=== PATIENT | female | born 1990 | race African-American/Black ===

== ENCOUNTER 2017-09-12 00:03 | Emergency (ER) | payer OTHER | END 2017-09-12 02:17 | disposition left against medical advice (07) | LOC: ER 00:03 | DX: G89.29 Other chronic pain (principal); M54.5 Low back pain; Z53.21 Procedure and treatment not carried out due to patient leaving prior to being seen by health care provider ==

== ENCOUNTER 2018-01-04 06:34 | Emergency (ER) | payer OTHER ==
[~2018-01-04] VITALS: Ht 160 cm; Wt 81.6 kg
--- NOTE | 2018-01-04 06:42 | PHYS DOC ---
Past Medical History Past Medical History: Asthma Past Surgical History: Smoking: Cigarettes (The patient is a nonsmoker.) Alcohol Use: Occasionally Drug Use: None Adult General Chief Complaint Chief Complaint: ASTHMA HPI HPI Patient is a 27-year-old -Prydeinig female with a past history of asthma who presents to the emergency department for evaluation of increasing trouble breathing and tightness in her chest over the past several days. She has had a cough productive of greenish sputum. She has not had any fevers or chills. She states that she had been taking albuterol but does not have a PCP and is out of her medication. She denies any abdominal pain, nausea, vomiting. She denies . There are no alleviating, or exacerbating factors to her symptoms although exertion seems to worsen her shortness of breath. Review of Systems Review of Systems Constitutional: Denies fever or chills [] Eyes: Denies change in visual acuity, redness, or eye pain [] HENT: Denies nasal congestion or sore throat [] Respiratory: Reports productive cough, shortness of breath, denies pleuritic pain[] Cardiovascular: The patient denies any chest pain, palpitations, or orthopnea [] GI: Denies abdominal pain, nausea, vomiting, bloody stools or diarrhea [] : Denies dysuria or hematuria. Denies [] Musculoskeletal: Denies back pain or joint pain [] Integument: Denies rash or skin lesions [] Neurologic: Denies headache, focal weakness or sensory changes [] Current Medications Current Medications Current Medications Medications (Trade) Dose Ordered Sig/Eleazar Start Time Stop Time Status Last Admin Dose Admin Albuterol/ Ipratropium (Duoneb) 3 ml 1X ONCE 01/04/18 06:45 01/04/18 06:46 DC 01/04/18 07:08 3 ML Prednisone (Prednisone) 40 mg 1X ONCE 01/04/18 06:45 01/04/18 06:46 DC 01/04/18 06:56 40 MG Allergies Allergies Allergies Coded Allergies Type Severity Reaction Last Updated Verified shellfish derived Allergy Unknown 09/12/17 Yes Physical Exam Physical Exam PHYSICAL EXAM: CONSTITUTIONAL: Well developed, well nourished HEAD: normocephalic, atraumatic EENT: PERRL, EOMI. Conjunctivae normal color, sclerae non-icteric; moist mucous membranes. NECK: Supple, non-tender; no meningismus. LUNGS: There are mildly diminished breath sounds diffusely, with scattered inspiratory and expiratory wheezes in all lung quinones. There are no rales or rhonchi. Breathing is mildly labored. HEART: Regular rate and rhythm, no murmur CHEST: No deformity; non-tender ABDOMEN: The abdomen is soft, and non-tender, no masses or bruits. EXTREM: Normal ROM; no deformity, no calf tenderness. Normal pulses palpable in all extremities. There is no pedal edema. SKIN: No rash; no diaphoresis NEURO: Alert; normal speech and cognition; CN's grossly intact; strength grossly intact without focal deficit. BACK: No CVA TTP. Current Patient Data Vital Signs Vital Signs Date Time Temp Pulse Resp B/P (MAP) Pulse Ox O2 Delivery O2 Flow Rate FiO2 01/04/18 07:34 105 18 128/77 (94) 95 Room Air 01/04/18 06:35 97.9 97.9 EKG EKG [] Radiology/Procedures Radiology/Procedures [PROCEDURE: CHEST PA & LATERAL CHEST PA LATERAL History: SHORTNESS OF BREATH X 4 DAYS, HX OF ASTHMA Comparison: Two-view chest, February 17, 2008. Findings: The cardiomediastinal silhouette is normal. Pulmonary vasculature is normal. The lungs are clear. No pleural effusion or pneumothorax is seen. There is no acute bone abnormality. IMPRESSION: No acute cardiopulmonary process. ] Course & Med Decision Making Course & Med Decision Making Pertinent maging studies reviewed. (See chart for details) [7:40 AM: The patient's condition has significantly improved. Her wheezing has almost completely resolved, and she is feeling much better. I discussed test results with the patient, home medication plan, the need for establishment of a PCP (she'll be given resources to facilitate such), and return precautions.] Dragon Disclaimer Dragon Disclaimer This electronic medical record was generated, in whole or in part, using a voice recognition dictation system. Departure Departure Impression: Primary Impression: Acute asthma exacerbation Disposition: 01 HOME, SELF-CARE Condition: IMPROVED Patient Instructions: Asthma, Acute Bronchospasm, Asthma, Adult Additional Instructions: Use the provided resources to help establish follow-up Care with a primary care provider in the next 1-2 weeks. Scripts Albuterol Sulfate (PROAIR HFA INHALER) 8.5 Gm Hfa.aer.ad 1 PUFF INH PRN Q6HRS PRN for SHORTNESS OF BREATH, #1 INHALER 0 Refills Prov: VERITO ZAZUETA MD 01/04/18 Prednisone (PREDNISONE) 20 Mg Tablet 40 MG PO DAILY for 5 Days, #10 TAB Prov: VERITO ZAZUETA MD 01/04/18 VERITO ZAZUETA MD Jan 04, 2018 06:42
[2018-01-04] MEDS ORDERED: predniSONE 20 MG TABLET PO ONE (06:45)
[2018-01-04] MEDS ORDERED: IPRATRPIUM/ALBUTEROL 0.5/2.5MG 3 ML NEBU. NEB ONE ×2 (06:45)
--- NOTE | 2018-01-04 07:06 | RAD ---
CHEST PA LATERAL History: SHORTNESS OF BREATH X 4 DAYS, HX OF ASTHMA Comparison: Two-view chest, February 17, 2008. Findings: The cardiomediastinal silhouette is normal. Pulmonary vasculature is normal. The lungs are clear. No pleural effusion or pneumothorax is seen. There is no acute bone abnormality. IMPRESSION: No acute cardiopulmonary process. Electronically signed by: Rodney Graham MD (01/04/2018 7:02 AM) [facility]
[2018-01-04 07:34] VITALS: BP 128/77
[2018-01-04] MEDS ORDERED: PRED20TA PO (07:46)
[2018-01-04] MEDS ORDERED: PROAIR HFA8.5 GM INH (07:46)
== END 2018-01-04 08:21 | disposition home or self-care (01) ==
LOC: ER 06:34
DX: J45.901 Unspecified asthma with (acute) exacerbation (principal); Z98.890 Other specified postprocedural states; Z91.013 Allergy to seafood
CPT/HCPCS: 71046; 94640; 99284; J7512; J7620

== ENCOUNTER 2018-01-27 13:24 | Emergency (ER) | payer OTHER ==
[~2018-01-27] VITALS: Ht 160 cm; Wt 81.6 kg
[~2018-01-27 13:24] MED LIST: PRED20TA PO; PROAIR HFA8.5 GM INH
[2018-01-27 13:54] VITALS: BP 134/91
--- NOTE | 2018-01-27 15:08 | RAD ---
History: Left plantar foot pain after wearing heels one week ago. Comparison: None. Findings: AP, lateral, and oblique views of the left foot. Mild hallux valgus is seen. No acute fracture or dislocation is identified. No focal soft tissue swelling is identified. Impression: 1. No acute osseous abnormality identified. 2. Mild hallux valgus. Electronically signed by: Usman Vann MD (01/27/2018 3:05 PM) [facility]
[2018-01-27] MEDS ORDERED: MELO7.5T5 PO (15:13)
--- NOTE | 2018-01-27 15:14 | PHYS DOC ---
Past Medical History Past Medical History: Asthma, Other Additional Past Medical Histor: Pre-Diabetes Past Surgical History: Alcohol Use: Occasionally Drug Use: Marijuana Adult General Chief Complaint Chief Complaint: ANKLE PROBLEM [facility] Patient is a 27 year old female who presents with left heel pain that started on 01/19/18 after wearing high heels. She states the pain increases when she stands up or puts weight on her foot. She denies a fall or any known injury. She has taken some dlsd-zbb-[id number] pain medication with mild relief. Review of Systems Review of Systems Constitutional: Denies fever or chills [] Respiratory: Denies cough or shortness of breath [] Cardiovascular: No additional information not addressed in HPI [] GI: Denies abdominal pain, nausea, vomiting, bloody stools or diarrhea [] : Denies dysuria or hematuria [] Musculoskeletal: See history of present illness Integument: Denies rash or skin lesions [] Neurologic: Denies headache, focal weakness or sensory changes [] Endocrine: Denies polyuria or polydipsia [] All other systems were reviewed and found to be within normal limits, except as documented in this note. Allergies Allergies Allergies Coded Allergies Type Severity Reaction Last Updated Verified shellfish derived Allergy Unknown 09/12/17 Yes Physical Exam Physical Exam Constitutional: Well developed, well nourished, no acute distress, non-toxic appearance. [] HENT: Normocephalic, atraumatic, bilateral external ears normal, oropharynx moist, no oral exudates, nose normal. [] Eyes: PERRLA, EOMI, conjunctiva normal, no discharge. [] Neck: Normal range of motion, no tenderness, supple, no stridor. [] Cardiovascular:Heart rate regular rhythm, no murmur [] Lungs & Thorax: Bilateral breath sounds clear to auscultation [] Abdomen: Bowel sounds normal, soft, no tenderness, no masses, no pulsatile masses. [] Skin: Warm, dry, no erythema, no rash. [] Back: No tenderness, no CVA tenderness. [] Extremities: tenderness to left heel with no evidence of Achilles rupture, no cyanosis, no clubbing, ROM intact, no edema or ecchymosis noted. [] Neurologic: Alert and oriented X 3, normal motor function, normal sensory function, no focal deficits noted. [] Psychologic: Affect normal, judgement normal, mood normal. [] Current Patient Data Vital Signs Vital Signs Date Time Temp Pulse Resp B/P (MAP) Pulse Ox O2 Delivery O2 Flow Rate FiO2 01/27/18 13:54 98.8 105 18 134/91 (105) 100 Room Air 98.8 EKG EKG [] Radiology/Procedures Radiology/Procedures []PATIENT: RENNY SUNG LACCOUNT: [id number]#: [id number] : 1990 LOCATION: ER AGE: 27 SEX: F EXAM STATUS: REG ER ORD. PHYSICIAN: ASH LY APRN REASON: pain x 1 week after wearing heels,D PROCEDURE: FOOT LEFT 3V History: Left plantar foot pain after wearing heels one week ago. Comparison: None. Findings: AP, lateral, and oblique views of the left foot. Mild hallux valgus is seen. No acute fracture or dislocation is identified. No focal soft tissue swelling is identified. Impression: 1. No acute osseous abnormality identified. 2. Mild hallux valgus. Electronically signed by: Usman Cervantes MD (01/27/2018 3:05 PM) [facility] DICTATED and SIGNED BY: USMAN CERVANTES MD DATE: 01/27/18 1503 Course & Med Decision Making Course & Med Decision Making Pertinent Labs and Imaging studies reviewed. (See chart for details) []The patient was placed in a postop shoe. She is to follow-up with podiatry for further evaluation of her condition. She is been placed on an anti- inflammatory. She is in agreement with this plan. She was given a shot of Toradol in the emergency department for pain. Dragon Disclaimer Dragon Disclaimer This electronic medical record was generated, in whole or in part, using a voice recognition dictation system. Departure Departure Impression: Primary Impression: Plantar fasciitis of left foot Disposition: 01 HOME, SELF-CARE Condition: STABLE Referrals: NO PCP (PCP) ANGE WELCH DPEmy Patient Instructions: Plantar Fasciitis Additional Instructions: Take the medication as directed. Follow-up with your primary care provider or podiatry if not improving in one week. Do the exercises and interventions that we discussed with tennis balls and frozen water bottles. Use mild stretching.` Scripts Meloxicam (MOBIC) 7.5 Mg Tablet 1 TAB PO DAILY for inflammation, #30 TAB 1 Refill Prov: ASH LY APRN 01/27/18 ASH LY APRN Jan 27, 2018 15:14
== END 2018-01-27 15:24 | disposition home or self-care (01) ==
LOC: ER 13:24
DX: M72.2 Plantar fascial fibromatosis (principal); J45.909 Unspecified asthma, uncomplicated; Z91.013 Allergy to seafood
CPT/HCPCS: 73630; 99283

== ENCOUNTER 2019-09-28 10:49 | Emergency (ER) | payer BC ==
[~2019-09-28] VITALS: Ht 154.9 cm; Wt 82.0 kg
[~2019-09-28 10:49] MED LIST changes: +ALBU2.5V8 INH; +MELO7.5T5 PO; -PROAIR HFA8.5 GM INH
[2019-09-28 13:00] VITALS: BP 151/92
--- NOTE | 2019-09-28 13:58 | PHYS DOC ---
Past Medical History Past Medical History: Asthma, Diabetes-Type II Additional Past Medical Histor: Pre-Diabetes Past Surgical History: Smoking Status: Never Smoker Alcohol Use: None Drug Use: Marijuana General Adult EDM: Chief Complaint: BACK PAIN - NO INJURY HPI: HPI: Patient is a 29 year old female who presents with right lower back pain that radiates down his right leg. She denies any recent falls or injury. She denies loss of bowel or bladder and saddle anesthesia. She denies any increased urination, dysuria, hematuria, nausea, vomiting, or fever. She describes the pain as a sharp shooting pain and rates it 8 out of 10. She has not tried any treatment at home and there are no alleviating factors, worse with movement. Review of Systems: Review of Systems: Constitutional: Denies fever or chills. [] Respiratory: Denies cough or shortness of breath. [] GI: Denies abdominal pain, loss of bowel, nausea, vomiting, or diarrhea. [] : Denies dysuria, loss of bladder. [] Musculoskeletal: See HPI Integument: Denies rash. [] Neurologic: Denies headache, focal weakness or sensory changes. [] Psychiatric: Denies depression or anxiety. [] Heart Score: Risk Factors: Risk Factors: DM, Current or recent (<one month) smoker, HTN, HLP, family history of CAD, obesity. Risk Scores: Score 0 - 3: 2.5% MACE over next 6 weeks - Discharge Home Score 4 - 6: 20.3% MACE over next 6 weeks - Admit for Clinical Observation Score 7 - 10: 72.7% MACE over next 6 weeks - Early Invasive Strategies Current Medications: Current Medications Medications (Trade) Dose Ordered Sig/Eleazar Start Time Stop Time Status Last Admin Dose Admin Ketorolac Tromethamine (Toradol 30mg Vial) 30 mg 1X ONCE 09/28/19 14:00 09/28/19 14:01 Orphenadrine Citrate (Norflex) 60 mg 1X ONCE 09/28/19 14:00 09/28/19 14:01 Allergies: Allergies: Allergies Coded Allergies Type Severity Reaction Last Updated Verified shellfish derived Allergy Unknown 09/12/17 Yes Physical Exam: PE: Constitutional: Well developed, well nourished, no acute distress, non-toxic appearance. [] HENT: Normocephalic, atraumatic, bilateral external ears normal, nose normal. [] Eyes: PERRLA, EOMI, conjunctiva normal, no discharge. [] Neck: Normal range of motion, no stridor. [] Cardiovascular:Heart rate regular rhythm Lungs & Thorax: Respirations even and unlabored, no retractions, no respiratory distress Back: no CVA tenderness; no bony spinal tenderness with palpation, right lumbar paraspinal tenderness with palpation, increased pain with R leg ROM, pt refuses to sit for straight leg lift testing [] Skin: Warm, dry, no erythema, no rash. [] Extremities: No cyanosis, ROM intact, no edema; Neurologic: Alert and oriented X 3, no focal deficits noted. [] Psychologic: Affect normal, judgement normal, mood normal. [] Current Patient Data: Vital Signs: Vital Signs Date Time Temp Pulse Resp B/P (MAP) Pulse Ox O2 Delivery O2 Flow Rate FiO2 09/28/19 13:00 98.1 90 17 151/92 (111) 100 Room Air 98.1 EKG: EKG: [] Radiology/Procedures: Radiology/Procedures: [] Course & Med Decision Making: Course & Med Decision Making Pertinent Labs and Imaging studies reviewed. (See chart for details) Patient presents with complaints of right low back pain that shoots down the right leg. She denies any urinary symptoms or complaints, her urine hCG is negative. Patient was given 60 mg of IM Norflex and 30 mg of IM Toradol in the emergency department. Will prescribe naproxen and Flexeril. Patient encouraged to follow the low back pain instructions and exercises that are provided. Patient encouraged to follow-up with her primary care doctor if symptoms persist. Return to the ER if symptoms worsen. Patient verbalized an understanding of home care, medications, follow-up, and return to ED instructions and was in agreement with the plan of care. [] Dragon Disclaimer: Dragon Disclaimer: This electronic medical record was generated, in whole or in part, using a voice recognition dictation system. Departure Departure Impression: Primary Impression: Right-sided low back pain with sciatica Qualified Codes: M54.41 - Lumbago with sciatica, right side Disposition: 01 HOME, SELF-CARE Condition: STABLE Referrals: UNKNOWN PCP NAME (PCP) Patient Instructions: Sciatica with [facility] Additional Instructions: Fill the prescription(s) and use as directed. Apply heat or ice for to sore areas as needed for comfort. Activity as tolerated. Follow up with your primary care doctor this week if symptoms persist, return to the ER if symptoms worsen. Scripts Cyclobenzaprine Hcl (CYCLOBENZAPRINE HCL) 10 Mg Tablet 1 TAB PO TID PRN for PAIN for 10 Days, #30 TAB 0 Refills Prov: HELGA SANON APRN 09/28/19 Naproxen (NAPROXEN) 500 Mg Tablet 1 TAB PO BID PRN for PAIN for 10 Days, #20 TAB 0 Refills Prov: HELGA SANON APRN 09/28/19 Justicifation of Admission Dx: Justifications for Admission: Justification of Admission Dx: N/A HELGA SANON APRN Sep 28, 2019 13:58
[2019-09-28] MEDS ORDERED: KETOROLAC 30 MG/ML VIAL. IM ONE (14:00)
[2019-09-28] MEDS ORDERED: ORPHENADRINE CITRATE 60 MG/2 ML VIAL. IM ONE (14:00)
[2019-09-28] MEDS ORDERED: NAPR-514 PO (14:22)
[2019-09-28] MEDS ORDERED: CYCL10TA2 PO (14:22)
== END 2019-09-28 14:30 | disposition home or self-care (01) ==
LOC: ER 10:49
DX: M54.41 Lumbago with sciatica, right side (principal); E11.9 Type 2 diabetes mellitus without complications; J45.909 Unspecified asthma, uncomplicated; Z91.013 Allergy to seafood
CPT/HCPCS: 81025; 96372; 99284; J1885; J2360

== ENCOUNTER 2020-06-28 10:33 | Emergency (ER) | payer SELFPAY ==
[~2020-06-28] VITALS: Ht 154.9 cm; Wt 79.0 kg
[~2020-06-28 10:33] MED LIST changes: +CYCL10TA2 PO; +NAPR-514 PO
[2020-06-28] MEDS ORDERED: [UNRECOGNIZED DRUG - CODE] VG (11:05)
--- NOTE | 2020-06-28 11:06 | PHYS DOC ---
Past Medical History Past Medical History: Asthma, Diabetes-Type II Additional Past Medical Histor: Pre-Diabetes (RAYNA CROCKETT WARDROBE CUSTODIAN) Past Surgical History: (RAYNA CROCKETT WARDROBE CUSTODIAN) Smoking Status: Never Smoker Alcohol Use: None Drug Use: Marijuana (RAYNA CROCKETT WARDROBE CUSTODIAN) General Adult EDM: Chief Complaint: VAGINAL PROBLEM HPI: HPI: Patient is a 30 year old female who presents with began using dove antibacterial soap and now has vaginal dryness and itching. She denies std concerns or vaginal discharge. She states she has alot of vaginal itching. Denies abdominal pain, nausea, vomiting, back pain, fever, urinary symptoms, diarrhea, constipation. She states she would also like to be checked for a UTI. Patient has a history of Diabetes, asthma, and . (RAYNA CROCKETT WARDROBE CUSTODIAN) Review of Systems: Review of Systems: Constitutional: Denies fever or chills. [] Eyes: Denies change in visual acuity. [] HENT: Denies nasal congestion or sore throat. [] Respiratory: Denies cough or shortness of breath. [] Cardiovascular: Denies chest pain or edema. [] GI: Denies abdominal pain, nausea, vomiting, bloody stools or diarrhea. [] : Denies dysuria. +Vaginal Dryness, +vaginal itching[] Musculoskeletal: Denies back pain or joint pain. [] Integument: Denies rash. [] Neurologic: Denies headache, focal weakness or sensory changes. [] Endocrine: Denies polyuria or polydipsia. [] Lymphatic: Denies swollen glands. [] Psychiatric: Denies depression or anxiety. [] (RAYNA CROCKETT WARDROBE CUSTODIAN) Heart Score: C/O Chest Pain: No Risk Factors: Risk Factors: DM, Current or recent (<one month) smoker, HTN, HLP, family history of CAD, obesity. Risk Scores: Score 0 - 3: 2.5% MACE over next 6 weeks - Discharge Home Score 4 - 6: 20.3% MACE over next 6 weeks - Admit for Clinical Observation Score 7 - 10: 72.7% MACE over next 6 weeks - Early Invasive Strategies (RAYNA CROCKETT WARDROBE CUSTODIAN) Allergies: Allergies: Allergies Coded Allergies Type Severity Reaction Last Updated Verified shellfish derived Allergy Unknown 09/12/17 Yes (RAYNA CROCKETT APRN) Physical Exam: PE: Constitutional: Well developed, well nourished, no acute distress, non-toxic appearance. [] HENT: Normocephalic, atraumatic, bilateral external ears normal, oropharynx moist, no oral exudates, nose normal. [] Eyes: PERRLA, EOMI, conjunctiva normal, no discharge. [] Neck: Normal range of motion, no tenderness, supple, no stridor. [] Cardiovascular:Heart rate regular rhythm, no murmur [] Lungs & Thorax: Bilateral breath sounds clear to auscultation [] Abdomen: Bowel sounds normal, soft, no tenderness, no masses, no pulsatile masses. [] Skin: Warm, dry, no erythema, no rash. Dryness to vaginal external skin[] Back: No tenderness, no CVA tenderness. [] Extremities: No tenderness, no cyanosis, no clubbing, ROM intact, no edema. [] Neurologic: Alert and oriented X 3, normal motor function, normal sensory function, no focal deficits noted. [] Psychologic: Affect normal, judgement normal, mood normal. [] (RANYA CROCKETT APRN) EKG: EKG: [] (RAYNA CROCKETT APRN) Radiology/Procedures: Radiology/Procedures: [] (RAYNA CROCKETT APRN) Course & Med Decision Making: Course & Med Decision Making Pertinent Labs and Imaging studies reviewed. (See chart for details) See HPI. Alert and oriented x4. Ambulatory with a steady gait. Speaks in full clear sentences. Afebrile. Pelvic Exam: Environmental Field Office Manager present Abdomen: Nontender External Genitalia: Normal Skin but dry in appearance Speculum: Normal vaginal mucosa, normal cervical discharge Bimanual: No adnexal masses or tenderness, No CMT [] (RAYNA CROCKETT APRN) Dragon Disclaimer: Dragon Disclaimer: This electronic medical record was generated, in whole or in part, using a voice recognition dictation system. (RAYNA CROCKETT APRN) Departure Departure Impression: Primary Impression: Vaginal itching Disposition: 01 HOME / SELF CARE / HOMELESS Condition: STABLE Referrals: UNKNOWN PCP NAME (PCP) JUSTINA MEYER Jr, MD Patient Instructions: Medical Screening Exam Additional Instructions: Follow-up with your primary care provider or your OB top and trim worker. Use [id number] creams for vaginal dryness. Scripts Polycarbophil (REPLENS) 6.7 Gm Gel.pf.cara 6.7 GM VG TID, #1 EACH Prov: RAYNA CROCKETT APRN 06/28/20 Attending Signature Attending Signature I have participated in the care of this patient and I have reviewed and agree with all pertinent clinical information above including history, exam, and recommendations. (LINDSAY VELAZQUEZ DO) RAYNA CROCKETT APRN June 28, 2020 11:06 LINDSAY VELAZQUEZ DO June 30, 2020 17:41
[2020-06-28 11:29] LABS: COLOR,URINE RED
[2020-06-28 11:47] LABS: CLARITY,URINE BLOODY
[2020-06-28 11:48] LABS: RBC,URINE TNTC /HPF (0-2)
[2020-06-28 11:50] LABS: BACTERIA,URINE MANY /HPF (0-FEW); WBC,URINE 20-40 /HPF (0-4)
== END 2020-06-28 11:54 | disposition home or self-care (01) ==
LOC: ER 10:33
DX: N89.8 Other specified noninflammatory disorders of vagina (principal); E11.9 Type 2 diabetes mellitus without complications; J45.909 Unspecified asthma, uncomplicated; Z91.013 Allergy to seafood
CPT/HCPCS: 81001; 87086; 99284

== ENCOUNTER 2020-07-30 15:12 | Emergency (ER) | payer BC ==
[~2020-07-30] VITALS: Ht 154.9 cm; Wt 78.0 kg
[~2020-07-30 15:12] MED LIST changes: +[UNRECOGNIZED DRUG - CODE] VG
[2020-07-30 16:02] LABS: BILIRUBIN,URINE NEGATIVE (NEG); CLARITY,URINE CLEAR; COLOR,URINE YELLOW; NITRITE,URINE NEGATIVE (NEG); PH,URINE 5.5 (<5.0-8.0); PROTEIN,URINE NEGATIVE (NEG-TRACE); UROBILINOGEN,URINE 0.2 mg/dL (0.2 mg/dL)
[2020-07-30 16:06] VITALS: BP 126/77
[2020-07-30 16:12] LABS: BACTERIA,URINE MODERATE /HPF (0-FEW); RBC,URINE 0 /HPF (0-2); WBC,URINE OCC /HPF (0-4)
[2020-07-30 16:21] LABS: U PREG PATIENT NEGATIVE (NEG)
[2020-07-30] MEDS ORDERED: NYST15CR2 TP (16:31)
[2020-07-30] MEDS ORDERED: METR-34 PO (16:31)
--- NOTE | 2020-07-30 16:31 | PHYS DOC ---
Past Medical History Past Medical History: Asthma, Diabetes-Type II Additional Past Medical Histor: Pre-Diabetes (RAYNA CRCOKETT DOCUMENT CONTROL ASSOCIATE) Past Surgical History: (RAYNA CROCKETT DOCUMENT CONTROL ASSOCIATE) Smoking Status: Never Smoker Alcohol Use: None Drug Use: Marijuana (RAYNA CROCKETT APRN) General Adult EDM: Chief Complaint: VAGINAL PROBLEM HPI: HPI: Patient is a 30 year old female who presents with states about a month ago she was here for vaginal dryness some diagnosed with a urinary tract infection. She states that she finished antibiotics. Patient states that she now has vaginal itching in her groins and inside the vagina. She denies any urinary symptoms. She denies any STD concerns or abnormal vaginal discharge. Denies any fever, abdominal pain, nausea, vomiting, diarrhea, back pain, dizziness or headache. History of diabetes, asthma, . (RAYNA CROCKETT DOCUMENT CONTROL ASSOCIATE) Review of Systems: Review of Systems: Constitutional: Denies fever or chills. [] Eyes: Denies change in visual acuity. [] HENT: Denies nasal congestion or sore throat. [] Respiratory: Denies cough or shortness of breath. [] Cardiovascular: Denies chest pain or edema. [] GI: Denies abdominal pain, nausea, vomiting, bloody stools or diarrhea. [] : Denies dysuria. + Vaginal itching [] Musculoskeletal: Denies back pain or joint pain. [] Integument: Denies rash. + Vaginal rash [] Neurologic: Denies headache, focal weakness or sensory changes. [] Endocrine: Denies polyuria or polydipsia. [] Lymphatic: Denies swollen glands. [] Psychiatric: Denies depression or anxiety. [] (RAYNA CROCKETT DOCUMENT CONTROL ASSOCIATE) Heart Score: C/O Chest Pain: No Risk Factors: Risk Factors: DM, Current or recent (<one month) smoker, HTN, HLP, family history of CAD, obesity. Risk Scores: Score 0 - 3: 2.5% MACE over next 6 weeks - Discharge Home Score 4 - 6: 20.3% MACE over next 6 weeks - Admit for Clinical Observation Score 7 - 10: 72.7% MACE over next 6 weeks - Early Invasive Strategies (RAYNA CROCKETT DOCUMENT CONTROL ASSOCIATE) Allergies: Allergies: Allergies Coded Allergies Type Severity Reaction Last Updated Verified shellfish derived Allergy Unknown 09/12/17 Yes (YASMINENASIM MANNINGCRISTINA Quevedo APRN) Physical Exam: PE: Constitutional: Well developed, well nourished, no acute distress, non-toxic appearance. [] HENT: Normocephalic, atraumatic, bilateral external ears normal, oropharynx moist, no oral exudates, nose normal. [] Eyes: PERRLA, EOMI, conjunctiva normal, no discharge. [] Neck: Normal range of motion, no tenderness, supple, no stridor. [] Cardiovascular:Heart rate regular rhythm, no murmur [] Lungs & Thorax: Bilateral breath sounds clear to auscultation [] Abdomen: Bowel sounds normal, soft, no tenderness, no masses, no pulsatile masses. [] Skin: Warm, dry, no erythema, no rash. Vaginal yeast rash in bilateral groins. [] Back: No tenderness, no CVA tenderness. [] Extremities: No tenderness, no cyanosis, no clubbing, ROM intact, no edema. [] Neurologic: Alert and oriented X 3, normal motor function, normal sensory function, no focal deficits noted. [] Psychologic: Affect normal, judgement normal, mood normal. [] (RAYNA CROCKETT APRN) Current Patient Data: Labs: Laboratory Tests Test 07/30/20 15:35 Urine Collection Type Unknown Urine Color Yellow Urine Clarity Clear Urine pH 5.5 (<5.0-8.0) Urine Specific [place] 1.025 (1.000-1.030) Urine Protein Negative mg/dL (NEG-TRACE) Urine Glucose (UA) 500 mg/dL (NEG) Urine Ketones (Stick) Negative mg/dL (NEG) Urine Blood Negative (NEG) Urine Nitrite Negative (NEG) Urine Bilirubin Negative (NEG) Urine Urobilinogen Dipstick 0.2 mg/dL (0.2 mg/dL) Urine Leukocyte Esterase Trace (NEG) Urine RBC 0 /HPF (0-2) Urine WBC Occ /HPF (0-4) Urine Squamous Epithelial Cells Mod /LPF Urine Bacteria Moderate /HPF (0-FEW) Urine Mucus Mod /LPF Urine Test Negative (NEG) Vital Signs: Vital Signs Date Time Temp Pulse Resp B/P (MAP) Pulse Ox O2 Delivery O2 Flow Rate FiO2 07/30/20 16:06 99.0 98 16 126/77 (93) 98 Room Air 99.0 (BONRAYNA Quevedo APRN) EKG: EKG: [] (RAYNA CROCKETT APRN) Radiology/Procedures: Radiology/Procedures: [] (RAYNA CROCKETT APRN) Course & Med Decision Making: Course & Med Decision Making Pertinent Labs and Imaging studies reviewed. (See chart for details) See HPI. Alert and oriented x4. Ambulatory with a steady gait. Speaks in full clear sentences. Yeast rash in bilateral groins. No other rash to the external vagina. No discharge to the external genitalia. Urinalysis does not show infection but it shows contamination. [] (RAYNA CROCKETT APRN) Dragon Disclaimer: Dragon Disclaimer: This electronic medical record was generated, in whole or in part, using a voice recognition dictation system. (RAYNA CROCKETT APRN) Departure Departure Impression: Primary Impression: Vaginal itching Additional Impression: Vagina, candidiasis Disposition: HOME / SELF CARE / HOMELESS Condition: STABLE Referrals: NO PCP (PCP) Patient Instructions: Candidal Vulvovaginitis, [id number], Cutaneous Candidiasis Additional Instructions: Follow-up with primary care provider or your electrical maintenance technician. Use and take medications as prescribed and with food. Drink plenty of fluids. Scripts Metronidazole (METRONIDAZOLE) 500 Mg Tablet 1 TAB PO BID for 7 Days, #14 TAB 0 Refills Prov: YASMINENASIM MANNINGCRISTINA Quevedo APRN 07/30/20 Nystatin/Triamcin (NYSTATIN-TRIAMCINOLONE CREAM) 15 Gm Cream..g. 1 SAMANTHA TP BID, #60 GM 1 Refill Prov: RAYNA CROCKETT APRN 07/30/20 Attending Signature I have participated in the care of this patient and I have reviewed and agree with all pertinent clinical information above including history, exam, and recommendations. (ELISA AUSTIN DO) RAYNA CROCKETT APRN Jul 30, 2020 16:31 ELISA AUSTIN DO Jul 30, 2020 17:04
== END 2020-07-30 16:47 | disposition home or self-care (01) ==
LOC: ER 15:12
DX: B37.3 Candidiasis of vulva and vagina (principal); J45.909 Unspecified asthma, uncomplicated; E11.9 Type 2 diabetes mellitus without complications; Z91.013 Allergy to seafood
CPT/HCPCS: 81001; 81025; 87086; 99283

== ENCOUNTER 2020-09-24 10:38 | Emergency (ER) | payer BC ==
[~2020-09-24] VITALS: Ht 154.9 cm; Wt 77.0 kg
[~2020-09-24 10:38] MED LIST changes: +METR-34 PO; +NYST15CR2 TP
[2020-09-24 11:36] VITALS: BP 137/91
[2020-09-24 12:11] LABS: BILIRUBIN,URINE NEGATIVE (NEG); CLARITY,URINE CLEAR; COLOR,URINE YELLOW; NITRITE,URINE NEGATIVE (NEG); PH,URINE 5.5 (<5.0-8.0); PROTEIN,URINE NEGATIVE (NEG-TRACE); UROBILINOGEN,URINE 0.2 mg/dL (0.2 mg/dL)
[2020-09-24 12:28] LABS: BACTERIA,URINE 0 /HPF (0-FEW); RBC,URINE OCC /HPF (0-2)
--- NOTE | 2020-09-24 14:57 | PHYS DOC ---
Past Medical History Past Medical History: Asthma, Diabetes-Type II Additional Past Medical Histor: Pre-Diabetes Past Surgical History: Smoking Status: Current Some Day Smoker Additional Information: "MARIJUANA" Alcohol Use: Rarely Drug Use: Marijuana General Adult EDM: Chief Complaint: VAGINAL PROBLEM HPI: HPI: Patient is a 30 year old female presents to the emergency department complaining of vaginal discharge for the past 2 months. Patient states that she was diagnosed for UTI couple months ago and was started on medications. Patient states that she took them on for a few days and her symptoms went away and quit taking her medications. Patient states that approximately 3 days ago she noticed some white vaginal discharge and vaginal itching. Patient denies any rashes to her vaginal area. Patient denies STI concerns. Patient denies chest pain, chest congestion, recent fever or chills. Patient denies burning with urination urinary frequency or pressure with urination or urinary tract infection type signs or symptoms. Patient denies any vaginal bleeding. Patient states she is a type II diabetic and has not taken her Janumet in several months stating that she plans on seeing her primary care physician Dr. Manuel on 14 October to get back on her medications. Patient denies shortness of breath, increased thirst or increased urination. Patient denies any other physical complaints or physical concerns. Review of Systems: Review of Systems: 14 body systems of review of systems have been reviewed. See HPI for pertinent positives and negative responses, otherwise all other systems are negative, nonpertinent or noncontributory. Constitutional: Negative except as outlined in HPI above. Skin: Negative except as outlined in HPI above. Eyes: Negative except as outlined in HPI above. HENT: Negative except as outlined in HPI above. Respiratory: Negative except as outlined in HPI above. Cardiovascular: Negative except as outlined in HPI above. GI: Negative except as outlined in HPI above. : Negative except as outlined in HPI above. Musculoskeletal: Negative except as outlined in HPI above. Integument: Negative except as outlined in HPI above. Neurologic: Negative except as outlined in HPI above. Endocrine: Negative except as outlined in HPI above. Lymphatic: Negative except as outlined in HPI above. Psychiatric: Negative except as outlined in HPI above. Heart Score: C/O Chest Pain: No Risk Factors: Risk Factors: DM, Current or recent (<one month) smoker, HTN, HLP, family history of CAD, obesity. Risk Scores: Score 0 - 3: 2.5% MACE over next 6 weeks - Discharge Home Score 4 - 6: 20.3% MACE over next 6 weeks - Admit for Clinical Observation Score 7 - 10: 72.7% MACE over next 6 weeks - Early Invasive Strategies Allergies: Allergies: Allergies Coded Allergies Type Severity Reaction Last Updated Verified shellfish derived Allergy Unknown 09/12/17 Yes Physical Exam: PE: Constitutional: Well developed, well nourished, no acute distress, non-toxic appearance. 30-year-old female in no apparent distress. HENT: Normocephalic, atraumatic. Eyes: Conjunctiva normal, no discharge. Neck: Normal range of motion, no stridor. Cardiovascular: No cyanosis appreciated, distal cap refill less than 2 seconds. Lungs & Thorax: Patient is in no respiratory distress, no audible adventitious lung sounds appreciated. Normal work of breathing. Lung sounds clear to auscultate all lung quinones. Normal breathing pattern. Abdomen: Nontender, no abnormalities noted. Skin: Warm, dry, no erythema, no rash. Back: No tenderness, no deformities. Extremities: No tenderness, no cyanosis, no clubbing, ROM intact, no edema. Neurologic: Alert and oriented X 3, normal motor function, normal sensory function, no focal deficits noted. Psychologic: Affect normal, judgement normal, mood normal. Current Patient Data: Labs: Laboratory Tests Test 09/24/20 11:18 09/24/20 13:06 Urine Collection Type Void Urine Color Yellow Urine Clarity Clear Urine pH 5.5 Urine Specific [place] 1.020 Urine Protein Negative mg/dL Urine Glucose (UA) >=1000 mg/dL Urine Ketones (Stick) Negative mg/dL Urine Blood Negative Urine Nitrite Negative Urine Bilirubin Negative Urine Urobilinogen Dipstick 0.2 mg/dL Urine Leukocyte Esterase Negative Urine RBC Occ /HPF Urine WBC 1-4 /HPF Urine Squamous Epithelial Cells Mod /LPF Urine Bacteria 0 /HPF Glucose (Fingerstick) 368 mg/dL Laboratory Tests Test 09/24/20 11:18 09/24/20 13:06 Urine Collection Type Void Urine Color Yellow Urine Clarity Clear Urine pH 5.5 (<5.0-8.0) Urine Specific [place] 1.020 (1.000-1.030) Urine Protein Negative mg/dL (NEG-TRACE) Urine Glucose (UA) >=1000 mg/dL (NEG) Urine Ketones (Stick) Negative mg/dL (NEG) Urine Blood Negative (NEG) Urine Nitrite Negative (NEG) Urine Bilirubin Negative (NEG) Urine Urobilinogen Dipstick 0.2 mg/dL (0.2 mg/dL) Urine Leukocyte Esterase Negative (NEG) Urine RBC Occ /HPF (0-2) Urine WBC 1-4 /HPF (0-4) Urine Squamous Epithelial Cells Mod /LPF Urine Bacteria 0 /HPF (0-FEW) Glucose (Fingerstick) 368 mg/dL (70-99) H Microbiology 09/24/20 Wet Prep - Final, Complete Vital Signs: Vital Signs Date Time Temp Pulse Resp B/P (MAP) Pulse Ox O2 Delivery O2 Flow Rate FiO2 09/24/20 11:36 97.4 100 12 137/91 (93) 100 Room Air 97.4 EKG: EKG: [] Radiology/Procedures: Radiology/Procedures: [] Course & Med Decision Making: Course & Med Decision Making Pertinent Labs and Imaging studies reviewed. (See chart for details) 30-year-old female, vital signs reviewed, presents emergency department concerning for exacerbation of yeast infection. Patient has refused pelvic examination, will order urinalysis assay. Bedside blood sugar. Patient's blood sugar 384, discussed with patient recommended further work-up of elevated blood sugar, patient has refused this stating that she would rather see her doctor outpatient and start back on her medications, patient states that she is not in DKA as she knows what that feels like. Patient does remain nontoxic in appearance, no respiratory distress, no abnormal breathing patterns and in no apparent distress. Discussed with patient urinalysis assay negative for infection, negative for yeast. Again discussed with patient need for pelvic exam and will send cultures of vaginal discharge to include STI cultures, wet prep. Patient has refused this stating that she would rather self swab. Patient self swabbed, specimen sent to lab, wet prep negative for yeast, negative for trichomonas. GC/chlamydia pending at this time. Discussed findings with patient, patient does reveal that she did start back on her medication regimen for her yeast infection 3 days ago and no longer has any vaginal itching. Discussed with patient most likely vaginal antifungal/antiyeast infection creams are masking any positive results. Discussed with patient need to continue her medication regiment as directed until complete. Patient is amenable to this plan. Discussed with patient we will not treat for GC chlamydia as she adamantly denies any STI concerns, she will receive a phone call or this ED will contact her if positive results. Patient states she is aware of this and amenable to this plan. Again reiterated need for further work-up of patient's elevated blood sugar, patient is adamant that she would rather go home and follow-up with her primary care for her elevated blood sugars. Reviewed risk versus benefits of partial refusal of care, patient states she will sign partial refusal of care form prior to discharge. Partial refusal of care form completed, patient signed with ED nursing staff witness. Discussed with the patient all findings and diagnostic testing as well as the need to follow-up with their primary care provider for further evaluation and treatment or return to the ED if any new or worsening symptoms. Strict return precautions were also discussed at length, the patient voiced understanding and agreement with the discharge planning. The patient was nontoxic in appearance, in no apparent distress, and hemodynamically stable at the time of disposition. Rajan Disclaimer: Rajan Disclaimer: This electronic medical record was generated, in whole or in part, using a voice recognition dictation system. Departure Departure Impression: Primary Impression: Vaginal discharge Additional Impressions: Type 2 diabetes mellitus Qualified Codes: E11.69 - Type 2 diabetes mellitus with other specified complication Elevated blood sugar Disposition: HOME / SELF CARE / HOMELESS Condition: GOOD Referrals: NO PCP (PCP) Additional Instructions: You were seen today in the emergency department for a recurrence of your vaginal discharge. Your urine did not show any yeast, the vaginal cultures that were sent to the laboratory did not show any yeast or trichomonas. As we discussed the gonorrhea and chlamydia cultures are pending. You do not have any STI concerns and did not wish to be treated today. If either comes back positive, you will be contacted with the phone number you left the flight operations dispatch clerk's for consideration of medication treatment. I suspect you were having a recurrence of your vaginal yeast infection as you stated you did not complete your antibiotic regimen as directed. But since then you have restarted your medications and your symptoms have resolved. Please continue as directed until completed. Your blood sugar was elevated at 368. I had offered further work-up and possible hospital admission related to this. You have refused this indicating that you will see your doctor soon and restart your oral medications that have been off for months per your statement. Please keep your appointment with Dr. Rose on 14 October. I do encourage you to restart your oral diabetic medications as directed by your physician. Please return to the hospital immediately for increased shortness of breath, or blood sugars elevated above 400. Again I did recommend further work-up and admission to hospital but you have indicated that you want to be discharged to home and follow-up as an outpatient for your diabetes. Thank you for visiting our Emergency Department. It was a pleasure taking care of you today in the emergency department and we appreciate you trusting us with your care. If any additional problems come up don't hesitate to return to visit us. Please follow up with your primary care provider so they can plan additional care if needed and know about the problem that you had. If symptoms worsen come back to the Emergency Department. Any concerning symptoms that start such as chest pain, shortness of air, weakness or numbness on one side of the body, running high fevers or any other concerning symptoms return to the ER. EMERGENCY DEPARTMENT GENERAL DISCHARGE INSTRUCTIONS Thank you for coming to [facility] Emergency Department (ED) today and trusting us with you care. We trust that you had a positive experience in our Emergency Department. If you wish to speak to the department management, you may call the Director at [phone]. YOUR FOLLOW UP INSTRUCTIONS ARE FOLLOWS: 1. Do you have a private Doctor? If you do not have a private doctor, please ask for a resource list of physicians or clinics that may be able to assist you with follow up care. 2. The Emergency Physicain has interpreted your x-rays. The X-Ray specialist will also review them. If there is a change in the findings, you will be notified in 48 hours when at all possible. 3. A lab test or culture has been done, your results will be reviewed and you will be notified if you need a change in treatment. ADDITIONAL INSTRUCTIONS AND INFORMATION: 1. Your care today has been supervised by a physician who is specially trained in emergency care. Many problems require more than one evaluation for a complete diagnosis and treatment. We recommend that you schedule your follow up appointment as recommended to ensure complete treatment of you illness or injury. If you are unable to obtain follow up care and continue to have a problem, or if your condition worsens, we recommend that you return to the ED. 2. We are not able to safely determine your condition over the phone nor are we able to give sound medical advice over the phone. For these safety reasons, if you call for medical advice we will ask you to come to the ED for further evaluation. 3. If you have any questions regarding these discharge instructions please call the ED at [phone]. SAFETY INFORMATION: In the interest of safety, wellness, and injury prevention; we encourage you to wear your sealbelt, if you smoke; quite smoking, and we encourage family to use a protective helmet for bicycling and other sporting events that present an increased risk for head injury. IF YOUR SYMPTOMS WORSEN OR NEW SYMPTOMS DEVELOP, OR YOU HAVE CONCERNS ABOUT YOUR CONDITION; OR IF YOUR CONDITION WORSENS WHILE YOU ARE WAITING FOR YOUR FOLLOW UP APPOINTMENT; EITHER CONTACT YOUR PRIMARY CARE DOCTOR, THE PHYSICIAN WHOSE NAME AND NUMBER YOU WERE GIVEN, OR RETURN TO THE ED IMMEDIATELY. GONSALO THOMAS APRN Sep 24, 2020 14:57
[2020-09-25 20:17] LABS: GC PROBE Negative (Negative)
== END 2020-09-24 15:08 | disposition home or self-care (01) ==
LOC: ER 10:38
DX: N89.8 Other specified noninflammatory disorders of vagina (principal); E11.9 Type 2 diabetes mellitus without complications; J45.909 Unspecified asthma, uncomplicated; F17.200 Nicotine dependence, unspecified, uncomplicated; Z91.013 Allergy to seafood
CPT/HCPCS: 81001; 82962; 87491; 87591; 99283; Q0111

== ENCOUNTER 2021-02-07 11:33 | Emergency (ER) | payer SELFPAY ==
[~2021-02-07] VITALS: Ht 154.9 cm; Wt 77.0 kg
[~2021-02-07 11:33] MED LIST changes: +CYCL10TA19 PO; -CYCL10TA2 PO
[2021-02-07 12:19] VITALS: BP 146/83
--- NOTE | 2021-02-07 12:38 | PHYS DOC ---
Past Medical History Past Medical History: Asthma, Diabetes-Type II Additional Past Medical Histor: Pre-Diabetes Past Surgical History: Smoking Status: Current Every Day Smoker Additional Information: [place] Alcohol Use: None Drug Use: Marijuana General Adult EDM: Chief Complaint: FOOT INJURY PAIN HPI: HPI: Patient is a 30-year-old female presents emergency department reporting while she was taking a shower approximately 1030 this morning the showerhead came off and fell onto the top of her left foot. Patient reports a 8 out of 10 pain to her foot. Reports she cannot walk on her foot since the incident. Did not take any hphg-pkb-[id number] pain medication at home stating she does not have any to take. Reports a history of type 2 diabetes, takes glipizide 5 mg daily, reports her last menstrual cycle approximately 3 weeks ago, reports surgical history of tubes tied. Denies chest pains, shortness of breath, abdominal pains for denies recent fever or chills. Denies other physical complaints or physical concerns. Review of Systems: Review of Systems: 14 body systems of review of systems have been reviewed. See HPI for pertinent positives and negative responses, otherwise all other systems are negative, nonpertinent or noncontributory. Constitutional: Negative except as outlined in HPI above. Skin: Negative except as outlined in HPI above. Eyes: Negative except as outlined in HPI above. HENT: Negative except as outlined in HPI above. Respiratory: Negative except as outlined in HPI above. Cardiovascular: Negative except as outlined in HPI above. GI: Negative except as outlined in HPI above. : Negative except as outlined in HPI above. Musculoskeletal: Negative except as outlined in HPI above. Integument: Negative except as outlined in HPI above. Neurologic: Negative except as outlined in HPI above. Endocrine: Negative except as outlined in HPI above. Lymphatic: Negative except as outlined in HPI above. Psychiatric: Negative except as outlined in HPI above. Heart Score: C/O Chest Pain: No Risk Factors: Risk Factors: DM, Current or recent (<one month) smoker, HTN, HLP, family history of CAD, obesity. Risk Scores: Score 0 - 3: 2.5% MACE over next 6 weeks - Discharge Home Score 4 - 6: 20.3% MACE over next 6 weeks - Admit for Clinical Observation Score 7 - 10: 72.7% MACE over next 6 weeks - Early Invasive Strategies Allergies: Allergies: Allergies Coded Allergies Type Severity Reaction Last Updated Verified shellfish derived Allergy Unknown 09/12/17 Yes Physical Exam: PE: Constitutional: Well developed, well nourished, no acute distress, non-toxic appearance. 30-year-old female in no apparent distress. HENT: Normocephalic, atraumatic. Eyes: Conjunctiva normal, no discharge. Neck: Normal range of motion, no stridor. Cardiovascular: No cyanosis appreciated, distal cap refill less than 2 seconds. Lungs & Thorax: Patient is in no respiratory distress, no audible adventitious lung sounds appreciated. Abdomen: Nontender, no abnormalities noted. Skin: Warm, dry, no erythema, no rash. Back: No tenderness, no deformities. Extremities: No tenderness, no cyanosis, no clubbing, ROM intact, no edema. Except for left foot, pain to palpation across dorsum skin surfaces, no bruising, no deformities, no crepitus, no swelling or edema appreciated, distal cap refill is less than 2 seconds, limited active range of motion of toes related to pain, 2+ dorsalis pedis/posterior tibial pulses bilaterally. Neurologic: Alert and oriented X 3, normal motor function, normal sensory function, no focal deficits noted. Psychologic: Affect normal, judgement normal, mood normal. Current Patient Data: Vital Signs: Vital Signs Date Time Temp Pulse Resp B/P (MAP) Pulse Ox O2 Delivery O2 Flow Rate FiO2 02/07/21 12:19 97.9 104 16 146/83 (104) 98 Room Air 97.9 EKG: EKG: [] Radiology/Procedures: Radiology/Procedures: REASON: Blunt trauma to top of foot PROCEDURE: FOOT LEFT 3V Exam performed: Left foot 3 views. Indication: Left foot trauma. Date of Service: 02/07/2021 12:46 PM . Comparison: None available Three views left foot findings: Normal alignment is preserved. There is no acute fracture or dislocation. No obvious soft tissue swelling or foreign bodies identified. Impression: 1. No definite abnormality seen . Electronically signed by: Jennifer Nguyen MD (02/07/2021 1:12 PM) [facility] Course & Med Decision Making: Course & Med Decision Making Pertinent Labs and Imaging studies reviewed. (See chart for details) 30-year-old female, vital signs reviewed, presents to the emergency department concerning left foot pain after a showerhead fell off and landed on her left foot today prior to arrival to ER. Physical examination is unremarkable, p atient's complaint of pain exceeds patient's physical examination in appearance. Will order ice pack, 600 mg ibuprofen p.o., x-ray of left foot. X-ray negative for acute fracture, discussed findings with patient, patient reports she started to feel better since taking the pain medication. Discussed with patient contusion care, RICE therapy, [id number] Tylenol or Motrin for discomfort, follow-up with primary care for reevaluation of ongoing pain, return to ER precautions and concerns. Patient is amenable to ED discharge planning. Discussed with the patient all findings and diagnostic testing as well as the need to follow-up with their primary care provider for further evaluation and treatment or return to the ED if any new or worsening symptoms. Strict return precautions were also discussed at length, the patient voiced understanding and agreement with the discharge planning. The patient was nontoxic in appearance, in no apparent distress, and hemodynamically stable at the time of disposition. Dragon Disclaimer: Dragberenice Disclaimer: This electronic medical record was generated, in whole or in part, using a voice recognition dictation system. Departure Departure Impression: Primary Impression: Contusion of left foot Qualified Codes: S90.32XA - Contusion of left foot, initial encounter Disposition: HOME / SELF CARE / HOMELESS Condition: GOOD Referrals: JOSE CANELA MD (PCP) Patient Instructions: Contusion, Elastic Bandage and RICE Additional Instructions: You were seen in the emergency department today for left foot pain after a showerhead fell off and struck the top of your left foot. An x-ray was ordered along with oral pain medication and an ice pack. Your x-ray did not show any concerning findings of broken bones or swelling. An Oleg wrap was applied to yo ur left foot today. Please follow-up with your primary care physician soon for ongoing pain management. You may use yhyj-mrt-kfxzbuz Tylenol or Motrin for ongoing aches and pains. An Oleg wrap was applied to your foot to aid in comfort and healing, please apply ice packs 30 minutes on and 30 minutes off while awake for the next 40 to 72 hours. Return to the emergency department for worsening symptoms or other concerns. Thank you for visiting our Emergency Department. It was a pleasure taking care of you today in the emergency department and we appreciate you trusting us with your care. If any additional problems come up don't hesitate to return to visit us. Please follow up with your primary care provider so they can plan additional care if needed and know about the problem that you had. If symptoms worsen come back to the Emergency Department. Any concerning symptoms that start such as chest pain, shortness of air, weakness or numbness on one side of the body, running high fevers or any other concerning symptoms return to the ER. EMERGENCY DEPARTMENT GENERAL DISCHARGE INSTRUCTIONS Thank you for coming to [facility] Emergency Department (ED) today and trusting us with you care. We trust that you had a positive experience in our Emergency Department. If you wish to speak to the department management, you may call the Director at [phone]. YOUR FOLLOW UP INSTRUCTIONS ARE FOLLOWS: 1. Do you have a private Doctor? If you do not have a private doctor, please ask for a resource list of physicians or clinics that may be able to assist you with follow up care. 2. The Emergency Physicain has interpreted your x-rays. The X-Ray specialist will also review them. If there is a change in the findings, you will be notified in 48 hours when at all possible. 3. A lab test or culture has been done, your results will be reviewed and you will be notified if you need a change in treatment. ADDITIONAL INSTRUCTIONS AND INFORMATION: 1. Your care today has been supervised by a physician who is specially trained in emergency care. Many problems require more than one evaluation for a complete diagnosis and treatment. We recommend that you schedule your follow up appointment as recommended to ensure complete treatment of you illness or injury. If you are unable to obtain follow up care and continue to have a problem, or if your condition worsens, we recommend that you return to the ED. 2. We are not able to safely determine your condition over the phone nor are we able to give sound medical advice over the phone. For these safety reasons, if you call for medical advice we will ask you to come to the ED for further evaluation. 3. If you have any questions regarding these discharge instructions please call the ED at [phone]. SAFETY INFORMATION: In the interest of safety, wellness, and injury prevention; we encourage you to wear your sealbelt, if you smoke; quite smoking, and we encourage family to use a protective helmet for bicycling and other sporting events that present an increased risk for head injury. IF YOUR SYMPTOMS WORSEN OR NEW SYMPTOMS DEVELOP, OR YOU HAVE CONCERNS ABOUT YOUR CONDITION; OR IF YOUR CONDITION WORSENS WHILE YOU ARE WAITING FOR YOUR FOLLOW UP APPOINTMENT; EITHER CONTACT YOUR PRIMARY CARE DOCTOR, THE PHYSICIAN WHOSE NAME AND NUMBER YOU WERE GIVEN, OR RETURN TO THE ED IMMEDIATELY. GONSALO THOMAS APRN Feb 07, 2021 12:38
[2021-02-07] MEDS ORDERED: IBUPROFEN 200 MG TABLET. PO ONE (12:45)
--- NOTE | 2021-02-07 13:14 | RAD ---
Exam performed: Left foot 3 views. Indication: Left foot trauma. Date of Service: 02/07/2021 12:46 PM . Comparison: None available Three views left foot findings: Normal alignment is preserved. There is no acute fracture or dislocation. No obvious soft tissue swel ling or foreign bodies identified. Impression: 1. No definite abnormality seen . Electronically signed by: Jennifer Nguyen MD (02/07/2021 1:12 PM) [facility]
== END 2021-02-07 13:48 | disposition home or self-care (01) ==
LOC: ER 11:33
DX: S90.32XA Contusion of left foot, initial encounter (principal); E11.9 Type 2 diabetes mellitus without complications; J45.909 Unspecified asthma, uncomplicated; F17.200 Nicotine dependence, unspecified, uncomplicated; W18.39XA Other fall on same level, initial encounter; Y93.89 Activity, other specified; Y92.89 Other specified places as the place of occurrence of the external cause; Y99.8 Other external cause status
CPT/HCPCS: 73630; 99283